=== PATIENT | male | born 1955 | race Two or more races ===

== ENCOUNTER → 2024-10-01 | Outpatient (CLI) | payer MEDICAID ==
[~2024-10-01] VITALS: Ht 170.2 cm; Wt 81.6 kg
[2024-10-01] MEDS: REGADENOSON 0.4 MG/5 ML SYRG IV ONE ×2 (10:39)
[2024-10-01] MEDS: METOPROLOL TARTRATE 50 MG TAB PO ONE (11:23)
--- NOTE | 2024-10-02 07:45 | DVHSR ---
APPROVED REPORT Exam: Nuclear Stress Test Indication: Chest pain Stress Tech: Rosaline Awad Ht: 5 ft 7 in Wt: 180 lbs BSA: 1.93 m2 BMI: 28.18 Medical History Medical History: HTN, Stroke/TIA w Left hemiparesis, hypercholesterolemia Allergies: No known drug allergies Stress Test Details Stress Test: Pharmacologic stress testing performed using 0.4 mg of regadenoson per 5 mL given IV ov er 10 seconds. Reason for pharmacologic stress test: CHEST PAIN. HR Resting HR: 88 bpmMax Heart Rate (APMHR): 152.057994 bpm Max HR Achieved: 141 bpmTarget HR (85% APMHR): 129.565255 bpm % of APMHR: 92.76 Recovery HR: 78 bpm BP Resting BP: 108/72 mmHg Recovery BP: 101/68 mmHg ECG Resting ECG: Atrial Fibrillation Clinical Reason for Termination: Completed protocol Nurse Comments Received patient from Nuclear Medicine. Patient is A&O x4 and on RA. FOR VS please refer back to st ress test assessment documentation. Patient is connected to awake overnight monitor. See cardio-neuro proce dural notes for addtional details. PIV flushes well. Reviewed POC and patient verbalizes understand ing and consents to test. Lexiscan stress test performed per protocol. crown and bridge dental lab technician administered the Cardiolite. Pat ient tolerated well and vitals returned to baseline. Transferred to Nuclear Medicine via wheelchair with tech in stable condition. Stress ECG Conclusion lvef 42% baseline ecg shows AFib, stress ecg shows AFib rvr infeiror infarct/fixed defect no major ischemia noted NM EXAM: Myocardial Perfusion REST/STRESS Imaging Protocol: Rest Tc-99m/Stress Tc-99m 1 day Resting Data Rest SPECT myocardial perfusion imaging was performed in supine position 60 minutes following the int ravenous injection of 10 mCi of Tc-99m Sestamibi. Time of rest injection: 09:00 Date: 10/01/2024 Time of rest imagin:00 Date: 10/01/2024 Administration Route: IV Administration Site: Right Hand Pharmacologic Stress Pharmacologic stress test was performed by injecting Regadenoson 0.4 mg IV push followed by the intra venous injection of 30.5 mCi of Tc-99m Sestamibi. Time of stress injection: 10:44 Date: 10/01/2024 Time of stress imagin:44 Date: 10/01/2024 Administration Route: IV Administration Site: Right Hand Gated Stress SPECT was performed 60 minutes after stress injection. The images were gated to evaluate regional wall motion and calculate left ventricular ejection fracti on. Stress only was performed in the Supine position. Nuclear Conclusion Nuclear Findings: negative for ischemia lvef 42% baseline ecg shows AFib, stress ecg shows AFib rvr infeiror infarct/fixed defect no major ischemia noted
== END | disposition home or self-care (01) ==
LOC: XYW 08:17
PROVIDERS: ATTEND Internal Medicine
DX: I48.91 Unspecified atrial fibrillation (principal); R07.9 Chest pain, unspecified; I10 Essential (primary) hypertension; E78.00 Pure hypercholesterolemia, unspecified
CPT/HCPCS: 78452; 93017; A9500; J2785